=== PATIENT | female | born 1940 | race Caucasian/White ===

== ENCOUNTER 2016-12-11 09:10 | Emergency (ER) | payer OTHER ==
[~2016-12-11] VITALS: Ht 157.5 cm; Wt 84.0 kg
[2016-12-11 09:14] VITALS: Ht 157.5 cm; Wt 84.0 kg
[2016-12-11] MEDS ORDERED: LISINOPRIL 10 MG TAB PO ONE (09:30)
[2016-12-11 09:46] LABS: ADD SCAN DIFF NO
[2016-12-11 09:47] LABS: BASOPHILS % 0.3 % (0.0-2.0); EOSINOPHILS # 0.2 10^3/ul (0.0-0.5); EOSINOPHILS % 2.4 % (0.0-7.0); HEMATOCRIT 37.8 % (37.0-47.0); HEMOGLOBIN 12.1 g/dl (12.0-16.0); LYMPHOCYTES # 2.1 10^3/ul (0.8-2.9); LYMPHOCYTES % 28.8 % (15.0-51.0); MEAN CORPUSCULAR HEMOGLOBIN 29.9 pg (29.0-33.0); MEAN CORPUSCULAR VOLUME 93.3 fl (82.0-101.0); MONOCYTE # 0.5 10^3/ul (0.3-0.9); MONOCYTES % 6.9 % (0.0-11.0); NEUTROPHIL # 4.4 10^3/ul (1.6-7.5); NEUTROPHILS % 61.3 % (39.0-77.0); PLATELET COUNT 217 10^3/UL (140-415); RED BLOOD COUNT 4.05 10^6/ul (4.20-5.40); RED CELL DISTRIBUTION WIDTH 14.1 % (11.5-14.5); WHITE BLOOD COUNT 7.2 10^3/ul (4.8-10.8)
[2016-12-11] MEDS ORDERED: LISI10TA2 PO (09:58)
[2016-12-11] MEDS ORDERED: CHOL100062 PO (09:58)
[2016-12-11] MEDS ORDERED: MULTI PO (09:58)
--- NOTE | 2016-12-11 10:01 | RADRPT ---
PROCEDURE: XR Chest. CLINICAL INDICATION: Chest pain TECHNIQUE: Chest AP portable. COMPARISON: 10/03/2008 FINDINGS: The mediastinal structures are unremarkable. There is calcification of the thoracic aorta (consiste nt with atherosclerosis). There is mild cardiomegaly. The pulmonary vascularity is normal. The alfreda ng dowd are unremarkable. No consolidation is identified. The pleural spaces are unremarkable. There is a mild dextroscoliosis of the thoracic spine. IMPRESSION: Calcification of the thoracic aorta (consistent with atherosclerosis) Mild cardiomegaly No active intrathoracic disease RPTAT: [facility] .Nitin Wooten MD, Date Time Electronically viewed and signed by .Nitin Wooten MD, on 12/11/2016 10:01 .B/
[2016-12-11 10:04] LABS: INR 0.95; PROTIME 12.7 Sec (12.2-14.2)
[2016-12-11 10:05] LABS: CHLORIDE 108 mmol/L (97-110); PARTIAL THROMBOPLASTIN TIME 35.4 Sec (25.0-35.0); SODIUM 141 mmol/L (135-144)
[2016-12-11 10:08] LABS: ANION GAP 8 (8-16); BLOOD UREA NITROGEN 18 mg/dl (7-20); CARBON DIOXIDE 29 mmol/L (21-31)
[2016-12-11 10:09] LABS: CALCIUM 9.3 mg/dl (8.4-10.2); GLUCOSE 111 mg/dl (70-220)
[2016-12-11 10:18] VITALS: BP 164/74; PULSE 72; RESP 21
[2016-12-11 10:21] LABS: TROPONIN-I < 0.012 ng/ml (0.00-0.12)
[2016-12-11] MEDS ORDERED: LORA-441 PO (10:29)
--- NOTE | 2016-12-11 10:33 | ERD ---
ER Documentation Chief Complaint Date/Time DATE: 12/11/16 TIME: 926 Chief Complaint Complains of left sided numbness x 3 days HPI 75-year-old female presents to the emergency department with her daughter for evaluation of "numbness" of her left arm. Patient's main complaint when I take a history from her is that she is anxious about a number of different social issues. She has difficulty focusing on a single episode, but clearly has significant anxiety. Today, she states that she began developing a nonspecific numbness about the left forearm. She denied chest pain, shortness of breath. She denied fevers or chills. She reported no headache, focal weakness or other significant neurologic symptoms. The daughter noted that her blood pressure was high today and brought the patient in the emergency department for evaluation of cardiac concerns. ROS All systems reviewed and are negative except as per history of present illness. Medications Home Meds Active Scripts Lorazepam* (Ativan*) 0.5 Mg Tablet, 0.5 MG PO Q8H Y for ANXIETY, #10 TAB Prov:RAHUL CARROLL 12/11/16 Reported Medications Multivitamins* (Theragran*) 1 Tab Tab, 1 TAB PO DAILY, TAB 12/11/16 Cholecalciferol* (Vitamin D3*) 1,000 Unit Tablet, 1000 UNIT PO DAILY, TAB 12/11/16 Lisinopril* (Lisinopril*) 10 Mg Tablet, 10 MG PO DAILY, #30 TAB 12/11/16 Allergies Allergies: Coded Allergies: Penicillins (Verified Allergy, Intermediate, 12/11/16) codeine (Verified Allergy, Unknown, 12/11/16) PMhx/Soc History of Surgery: Yes (Cholecystectomy, Appendectomy, Hernia repair) Anesthesia Reaction: No Hx Neurological Disorder: No Hx Respiratory Disorders: No Hx Cardiac Disorders: Yes (HTN) Hx Psychiatric Problems: No Hx Miscellaneous Medical Probl: No Hx Alcohol Use: No Hx Substance Use: No Hx Tobacco Use: Yes Smoking Status: Former smoker FmHx Noncontributory for chief complaint Physical Exam Vitals Vital Signs Date Time Temp Pulse Resp B/P Pulse Ox O2 Delivery O2 Flow Rate FiO2 12/11/16 10:18 72 21 164/74 98 Room Air 12/11/16 09:46 73 15 185/69 96 Room Air 12/11/16 09:46 73 12/11/16 09:44 0 5/29/17 09:14 98.5 81 20 205/86 98 Physical Exam GENERAL: The patient is well developed and appropriate for usual state of health in no apparent distress HEENT: Pupils equal, round, and reactive to light. EOMI. There is no scleral icterus. NECK: C-spine is soft and supple, there is no meningismus. There is no cervical lymphadenopathy. LUNGS: Clear to auscultation bilaterally. There are no rales, wheezes or rhonchi. HEART: Regular rate and rhythm, no murmurs, clicks, rubs or gallops. ABDOMEN: Soft, non-tender, non-distended. There are bowel sounds in all four quadrants. No rebound or guarding. EXTREMITIES: There is no peripheral cyanosis or edema. No focal swelling or erythema. NEURO: The patient moves all four extremities with 5/5 strength. Cranial nerves II - XII are intact. Normal gait. Alert and oriented SKIN: There is no apparent rash or petechiae. HEME/LYMPHATIC: There is no evidence of excessive bruising or lymphedema. PSYCHIATRIC: Patient has an anxious affect and demeanor. Result Diagram: 12/11/1692912/11/16929 Results 24 hrs Laboratory Tests Test 12/11/16 09:30 White Blood Count 7.210^3/ul Red Blood Count 4.0510^6/ul Hemoglobin 12.1g/dl Hematocrit 37.8% Mean Corpuscular Volume 93.3fl Mean Corpuscular Hemoglobin 29.9pg Mean Corpuscular Hemoglobin Concent 32.0g/dl Red Cell Distribution Width 14.1% Platelet Count 73023^3/UL Mean Platelet Volume 10.0fl Neutrophils % 61.3% Lymphocytes % 28.8% Monocytes % 6.9% Eosinophils % 2.4% Basophils % 0.3% Nucleated Red Blood Cells % 0.0/100WBC Neutrophils # 4.410^3/ul Lymphocytes # 2.110^3/ul Monocytes # 0.510^3/ul Eosinophils # 0.210^3/ul Basophils # 0.010^3/ul Nucleated Red Blood Cells # 0.010^3/ul Prothrombin Time 12.7Sec Prothrombin Time Ratio 1.0 INR International Normalized Ratio 0.95 Activated Partial Thromboplast Time 35.4Sec Sodium Level 141mmol/L Potassium Level 4.0mmol/L Chloride Level 108mmol/L Carbon Dioxide Level 29mmol/L Anion Gap 8 Blood Urea Nitrogen 18mg/dl Creatinine 0.80mg/dl Glucose Level 111mg/dl Calcium Level 9.3mg/dl Troponin I < 0.012ng/ml Current Medications Medications (Trade) Dose Ordered Sig/Beverly Route PRN Reason Start Time Stop Time Status Last Admin Dose Admin Lisinopril (Zestril) 10 mg ONCE ONCE PO 12/11/16 09:30 12/11/16 09:31 DC 12/11/16 10:01 Procedures/MDM Patient was taken to a room, seen and evaluated. Comfort measures were initiated. Diagnostic tests were ordered and reviewed. 3 LEAD RHYTHM STRIP: Normal sinus rhythm without ectopy EK lead EKG reviewed by myself: Normal Sinus Rhythm Normal Martin and intervals Nonspecific ST and T waves without ST elevation Impression: Normal EKG RADIOLOGY: reviewed with the radiologist REEVALUATION: After given the patient her normal blood pressure medication that she usually takes at home, she was reevaluated. Her anxiety improved. Diagnostic tests were described to her and she felt much better knowing that her cardiac tests did not show heart attack. Patient felt well at that time was reassured and requested discharge. MEDICAL DECISION MAKIN-year-old female presents the emergency department with nonspecific numbness. Patient's evaluation does not show evidence of significant stroke or neurologic deficit. Furthermore cardiac evaluation has been negative. At this time, I believe this is likely related to her underlying anxiety. Overall, she feels well and seems to be appropriate for outpatient care. Departure Diagnosis: Primary Impression: Anxiety Condition: Stable Patient Instructions: Anxiety Reaction Additional Instructions: See your doctor for follow-up as discussed. Take a copy of your test results, if appropriate, to this follow-up visit. See your doctor or return here if your symptoms do not improve as expected. At any time, please return to the emergency department for any change or worsening in her symptoms. RAHUL CARROLL December 11, 2016 10:33
== END 2016-12-11 10:38 | disposition home or self-care (01) ==
LOC: E/R 09:10
DX: F41.9 Anxiety disorder, unspecified (principal); R40.2252 Coma scale, best verbal response, oriented, at arrival to emergency department; I10 Essential (primary) hypertension; R07.9 Chest pain, unspecified; R40.2362 Coma scale, best motor response, obeys commands, at arrival to emergency department; R40.2142 Coma scale, eyes open, spontaneous, at arrival to emergency department; Z87.891 Personal history of nicotine dependence
CPT/HCPCS: 36415; 71010; 80048; 84484; 85025; 85610; 85730; 93005

== ENCOUNTER 2016-12-27 19:43 | Emergency (ER) | payer OTHER ==
[~2016-12-27] VITALS: Ht 162.6 cm; Wt 84.0 kg
[~2016-12-27 19:43] MED LIST: CHOL100062 PO; LISI10TA2 PO; LORA-441 PO; MULTI PO
[2016-12-27 19:49] VITALS: Ht 162.6 cm; Wt 84.0 kg
--- NOTE | 2016-12-27 20:44 | ERD ---
ER Documentation Chief Complaint Date/Time DATE: 12/27/16 TIME: 20:42 Chief Complaint left arm numbness intermittently x 3 weeks HPI 76-year-old female with a history of hypertension comes emergency room with left arm numbness intermittent for the past 3 weeks. Patient states that it usually occurs at nighttime or when she is about to get ready to go to bed. It starts in her left elbow and radiates to her digits and worse in the left third fourth and fifth digits. There is no weakness associated. She has not had any radiation to the jaw, shoulder or chest. She denies any chest pain, shortness of breath, diaphoresis or nausea. She states that she is asymptomatic at this time. ROS All systems reviewed and are negative except as per history of present illness. Medications Home Meds Active Scripts Lorazepam* (Ativan*) 0.5 Mg Tablet, 0.5 MG PO Q8H Y for ANXIETY, #10 TAB Prov:RAHUL CARROLL 12/11/16 Reported Medications Multivitamins* (Theragran*) 1 Tab Tab, 1 TAB PO DAILY, TAB 12/11/16 Cholecalciferol* (Vitamin D3*) 1,000 Unit Tablet, 1000 UNIT PO DAILY, TAB 12/11/16 Lisinopril* (Lisinopril*) 10 Mg Tablet, 10 MG PO DAILY, #30 TAB 12/11/16 Allergies Allergies: Coded Allergies: Penicillins (Verified Allergy, Intermediate, 12/11/16) codeine (Verified Allergy, Unknown, 12/11/16) PMhx/Soc Medical and Surgical Hx: pt denies Surgical Hx History of Surgery: No Anesthesia Reaction: No Hx Neurological Disorder: No Hx Respiratory Disorders: No Hx Cardiac Disorders: Yes (HTN) Hx Psychiatric Problems: No Hx Miscellaneous Medical Probl: No Hx Alcohol Use: No Hx Substance Use: No Hx Tobacco Use: Yes Smoking Status: Former smoker Physical Exam Vitals Vital Signs Date Time Temp Pulse Resp B/P Pulse Ox O2 Delivery O2 Flow Rate FiO2 12/27/16 19:49 98.1 71 20 155/69 98 Physical Exam General: Well-developed, well-nourished. The patient appears in no acute distress. HEENT: Head is normocephalic, atraumatic. No scleral icterus. Neck: Supple. Nontender. Lungs: Clear to auscultation. Normal air movement. Heart: Regular rate and rhythm. S1 and S2 are normal. No murmurs, gallops, or rubs. Abdomen: Soft, nontender, nondistended. Bowel sounds are normoactive. Extremities: Radial, ulnar, median nerves intact bilaterally. Sales Development Consultant strength 5 out of 5 bilaterally. There is no swelling, no erythema, no warmth to the extremities. Neurologic: Alert and oriented 3. No focal deficits. Skin: Normal turgor. No rash or lesions. Procedures/MDM 12-lead EKG(interpreted by supervising physician): Rate/Rhythm: Normal Sinus Rhythm, QRS, ST, T-waves: No changes consistent w/ acute ischemia, no intervals, no dysrhythmias, no ectopy Impression: No evidence of ischemia or arrhythmia] MDM: 76-year-old female comes in with neuropathy, I believe that this is a peripheral process. I do not see any acute signs of her symptoms of stroke, neuropraxia, cervical radiculopathy, transverse myelitis, meningitis, encephalitis, TIA, stroke, acute coronary syndrome, dissection among others are part of my differential diagnosis today. She is asymptomatic at this time, EKG shows normal sinus rhythm without any signs of ischemia. The case was reviewed and discussed with Dr. Gurrola who agrees with the plan of care including labs, treatment, and advanced imaging as appropriate. Patient's blood pressure was elevated (>120/80) but appears stable without evidence of hypertension emergency or urgency. The patient was counseled about the risks of hypertension and urged to pursue outpatient monitoring and therapy within a week with their primary care physician. Departure Diagnosis: Primary Impression: Numbness Condition: Good JOSE HAGEN PA-C Dec 27, 2016 20:44
== END 2016-12-27 21:00 | disposition home or self-care (01) ==
LOC: FTE 19:43
DX: R20.0 Anesthesia of skin (principal); I10 Essential (primary) hypertension; Z87.891 Personal history of nicotine dependence
CPT/HCPCS: 93005

== ENCOUNTER 2018-05-16 16:22 | Emergency (ER) | END 2018-05-16 22:34 | disposition home or self-care (01) ==

== ENCOUNTER 2018-08-03 15:13 | Emergency (ER) | payer MEDICARE, OTHER ==
[~2018-08-03] VITALS: Ht 165.1 cm; Wt 76.6 kg
[~2018-08-03 15:13] MED LIST changes: +ASPI-817 PO; +FAMO-96 PO; +LAMO150T2 PO; -LORA-441 PO; -MULTI PO
[2018-08-03 15:21] VITALS: Ht 165.1 cm; Wt 76.6 kg
[2018-08-03] MEDS ORDERED: SOD CHLORIDE 0.9% 1,000 ML IV STA (16:48)
[2018-08-03] MEDS ORDERED: ONDANSETRON 4 MG INJ IV STA (16:48)
--- NOTE | 2018-08-03 17:06 | ERD ---
ER Documentation Chief Complaint Chief Complaint pt bib family with c/o feeling dizzy over the last few days, near syncope HPI 77-year-old woman with complaints of dizziness times 2 days and some nausea, feeling lightheaded. She states symptoms began shortly after having her lamotrigine dose increased from 150 mg to 200 mg. She denies loss of consciousness, no chest pain or shortness of breath, no vomiting or diarrhea, no abdominal pain, no headache or blurry vision. ROS All systems reviewed and are negative except as per history of present illness. Medications Home Meds Active Scripts Famotidine* (Pepcid*) 20 Mg Tablet, 20 MG PO BID for 10 Days, TAB Prov:CHAZ PAREDES MD 05/16/18 Reported Medications Lamotrigine* (Lamotrigine*) 200 Mg Tablet, 200 MG PO DAILY, TAB 08/03/18 Aspirin* (Aspirin* EC) 81 Mg Tablet.dr, 81 MG PO DAILY, TAB 05/16/18 Cholecalciferol* (Vitamin D3*) 1,000 Unit Tablet, 1000 UNIT PO DAILY, TAB 05/16/18 Lisinopril* (Lisinopril*) 10 Mg Tablet, 10 MG PO DAILY, #30 TAB 05/16/18 Discontinued Reported Medications Lamotrigine* (Lamotrigine*) 150 Mg Tablet, 150 MG PO DAILY, TAB 05/16/18 Allergies Allergies: Coded Allergies: Penicillins (Verified Allergy, Intermediate, 08/03/18) codeine (Verified Allergy, Unknown, 08/03/18) PMhx/Soc Psychiatric illness, CAD, hypertension, status post cholecystectomy, appendectomy, total abdominal hysterectomy and bilateral salpingo-oophorectomy History of Surgery: Yes ([place],Cholecystectomy,Umbilical Herni orrhaphy,Oophorectomy) Anesthesia Reaction: No Hx Neurological Disorder: No Hx Respiratory Disorders: No Hx Cardiac Disorders: Yes (HTN) Hx Psychiatric Problems: Yes (Clinical Depression) Hx Miscellaneous Medical Probl: No Hx Alcohol Use: No Hx Substance Use: No Hx Tobacco Use: Yes Smoking Status: Never smoker FmHx Family History: No diabetes Physical Exam Vitals Vital Signs Date Temp Pulse Resp B/P (MAP) Pulse Ox O2 O2 Flow FiO2 Time Delivery Rate 08/03/18 68 17 159/66 98 Room Air 17:30 (97) 08/03/18 98.3 74 16 196/88 97 15:21 (124) Physical Exam GENERAL: Well-developed, well-nourished, well-hydrated, in no apparent distress, looks nontoxic in appearance HEENT: Moist mucous membranes, pink conjunctiva, no cervical spine tenderness or step-off deformities, no goiter, no jaundice or icterus, extraocular movements intact without pain. No submandibular induration, and no pharyngeal erythema NEURO: Alert and oriented 3, cranial nerves II through XII intact bilaterally, pupils equal round reactive to light, no focal deficits or facial asymmetry, sensation intact distally Strength 5/5 in upper and lower extremities bilaterally CARDIAC: Regular rate and rhythm, no murmurs rubs or gallops LUNGS: Clear bilaterally no wheezing crackles or stridor ABDOMEN: Soft nontender, no guarding, no rigidity, no rebound, no psoas sign no obturator sign. Normoactive bowel sounds SKIN: Warm and dry to touch, no abrasions, contusions, or hematomas, no lacerations, no ecchymosis, no target lesions, and without ulcers EXTREMITIES: No clubbing cyanosis or edema, calves are bilaterally symmetrical, no Homans sign, no popliteal cord sign. Distal pulses equal and bilateral PSYCH: Normal affect without agitation or irritability Result Diagram: 08/03/18 1720 08/03/18 1720 Results 24 hrs Laboratory Tests Test 08/03/18 17:20 White Blood Count 7.9 10^3/ul Red Blood Count 4.10 10^6/ul Hemoglobin 12.2 g/dl Hematocrit 38.2 % Mean Corpuscular Volume 93.2 fl Mean Corpuscular Hemoglobin 29.8 pg Mean Corpuscular Hemoglobin Concent 31.9 g/dl Red Cell Distribution Width 12.5 % Platelet Count 227 10^3/UL Mean Platelet Volume 9.7 fl Immature Granulocytes % 0.400 % Neutrophils % 58.9 % Lymphocytes % 31.2 % Monocytes % 7.3 % Eosinophils % 2.1 % Basophils % 0.1 % Nucleated Red Blood Cells % 0.0 /100WBC Immature Granulocytes # 0.030 10^3/ul Neutrophils # 4.7 10^3/ul Lymphocytes # 2.5 10^3/ul Monocytes # 0.6 10^3/ul Eosinophils # 0.2 10^3/ul Basophils # 0.0 10^3/ul Nucleated Red Blood Cells # 0.0 10^3/ul Urine Color YELLOW Urine Clarity SLIGHTLY CLOUDY Urine pH 6.0 Urine Specific [place] 1.008 Urine Ketones NEGATIVE mg/dL Urine Nitrite NEGATIVE mg/dL Urine Bilirubin NEGATIVE mg/dL Urine Urobilinogen NEGATIVE mg/dL Urine Leukocyte Esterase 3+ Edison/ul Urine Microscopic RBC 4 /HPF Urine Microscopic WBC 52 /HPF Urine Squamous Epithelial Cells FEW /HPF Urine Bacteria MANY /HPF Urine Mucus FEW /HPF Urine Hemoglobin 2+ mg/dL Urine Glucose NEGATIVE mg/dL Urine Total Protein NEGATIVE mg/dl Sodium Level 136 mmol/L Potassium Level 4.2 mmol/L Chloride Level 99 mmol/L Carbon Dioxide Level 30 mmol/L Anion Gap 7 Blood Urea Nitrogen 24 mg/dl Creatinine 0.77 mg/dl Est Glomerular Filtrat Rate mL/min mL/min Glucose Level 85 mg/dl Calcium Level 9.4 mg/dl Total Bilirubin 0.4 mg/dl Direct Bilirubin 0.00 mg/dl Indirect Bilirubin 0.4 mg/dl Aspartate Amino Transf (AST/SGOT) 27 IU/L Alanine Aminotransferase (ALT/SGPT) 16 IU/L Alkaline Phosphatase 88 IU/L Troponin I < 0.012 ng/ml Total Protein 7.7 g/dl Albumin 4.3 g/dl Globulin 3.40 g/dl Albumin/Globulin Ratio 1.26 Lipase 122 U/L Current Medications Medications Dose Sig/Beverly Start Time Status Last (Trade) Ordered Route PRN Stop Time Admin Dose Reason Admin Sodium 1,000 ml @ Q1H STAT 08/03/18 DC 08/03/18 Chloride 1,000 mls/hr IV 16:48 17:25 08/03/18 17:47 Ondansetron 4 mg ONCE STAT 08/03/18 DC 08/03/18 HCl (Zofran IV 16:48 17:25 Inj) 08/03/18 16:49 Procedures/MDM IV line was established patient was placed on buffing machine tender rhythm strip revealed a sinus rhythm at about 70 bpm with upright P and T waves. Patient was afebrile EKG performed, read by me: 65 bpm, normal sinus rhythm, normal axis, no acute ST segment changes, narrow QRS complex, with good R-wave progression in precordial leads. I administered 1 L normal saline IV and Zofran 4 mg IV for complaints of dizziness. CBC and electrolytes are normal, liver function tests were normal, troponin was negative, urinalysis positive for infection I administered ceftriaxone 1 g IV x1. Patient feels much better and I suspect her symptoms are due to an active UTI. She has no signs or symptoms of pyelonephritis so I will treat her as an outpatient as is her preference as well. I also told her some of the well-known side effects of lamotrigine include somnolence, vertigo, dizziness, nausea most of which she is experiencing so I recommended she decrease her dose back to 150 mg Differential diagnoses considered, included but not limited to acute coronary syndrome, pulmonary embolism, aortic dissection, abdominal aortic aneurysm, sepsis, stroke, meningitis, encephalitis, pneumonia, appendicitis, cholecystitis, bowel obstruction, pyelonephritis, nephrolithiasis, cystitis, as well as metabolic, hematologic, and electrolyte abnormalities. As well as abscess, cellulitis, fractures, and dislocations. Patient feels much better at this time, and vital signs are normal, symptoms have improved. I did give strict instructions to return to the ED if symptoms continue or worsen, patient will otherwise follow-up with primary care physician. Patient understood instructions and agreed to plan. Disclaimer: Inadvertent spelling and grammatical errors are likely due to EHR/dictation software use and do not reflect on the overall quality of patient care. Also, please note that the electronic time recorded on this note does not necessarily reflect the actual time of the patient encounter. Departure Diagnosis: Primary Impression: Dizziness Additional Impressions: Medication side effect Acute UTI Condition: GAGANDEEP Chakraborty MD Aug 03, 2018 17:06
[2018-08-03] MEDS ORDERED: LAMO200T2 PO (17:13)
[2018-08-03] MEDS ORDERED: CEPH-443 PO (18:24)
[2018-08-03] MEDS ORDERED: CEFTRIAXONE 1 GM/50 ML (PMX) 50 ML IVPB ONE (18:30)
[2018-08-03 20:00] VITALS: BP 144/66; PULSE 68; RESP 19
== END 2018-08-03 20:37 | disposition home or self-care (01) ==
LOC: E/R 15:13
DX: R42 Dizziness and giddiness (principal); R40.2142 Coma scale, eyes open, spontaneous, at arrival to emergency department; R40.2362 Coma scale, best motor response, obeys commands, at arrival to emergency department; R40.2252 Coma scale, best verbal response, oriented, at arrival to emergency department; N39.0 Urinary tract infection, site not specified; T42.6X5A Adverse effect of other antiepileptic and sedative-hypnotic drugs, initial encounter; I25.10 Atherosclerotic heart disease of native coronary artery without angina pectoris; I10 Essential (primary) hypertension; Z79.82 Long term (current) use of aspirin
CPT/HCPCS: 36415; 80053; 81001; 83690; 84484; 85025; 93005; 96365; 96375; 99284; J2405; J7030